=== PATIENT | female | born 1965 | race Caucasian/White ===

== ENCOUNTER 2023-08-17 14:03 | Emergency (ER) | payer SELFPAY ==
[2023-08-17 14:06] VITALS: BP 163/111; PULSE 77; RESP 16; TEMP 36.8; O2SAT 99; BMI 44.3
--- NOTE | 2023-08-17 14:18 | ED.GENADUL1 ---
HPI - General Adult General Chief complaint: Allergic Reaction Stated complaint: BEE STING ALLERGIC REACTION Time Seen by Provider: 08/17/23 14:10 Source: patient Mode of arrival: walk-in Limitations: no limitations History of Present Illness HPI narrative: patient is a 58-year-old female who presents to the emergency department for redness and swelling to the left medial arm after a bee sting approximately eight hours ago. She states she has a history of ALLERGIC reaction, but admits that she has never had any diffuse urticaria, lip swelling or tongue swelling and has never required an epi injection. She states typically the area where she is stung in the past has been red and swollen and she was told that she had an ALLERGIC reaction. She states she was always told she needed a steroid shot for her symptoms. She has no other focal medical complaints at this time. No medications taken prior to arrival. Related Data Previous Rx's Medication Instructions Recorded famotidine 20 mg tablet (Pepcid) 20 mg PO BID #10 tabs 08/17/23 hydroxyzine HCl 25 mg tablet 25 mg PO Q6H PRN itching #20 tabs 08/17/23 methylprednisolone 4 mg tablets in See Rx Instructions .Route 08/17/23 a dose pack (Medrol (Richard)) .COMPLEX #21 ea Allergies Allergy/AdvReac Type Severity Reaction Status Date / Time No Known Drug Allergies Allergy Verified 08/17/23 14:09 Review of Systems ROS Constitutional Denies: fever or chills Ears, nose, mouth, and throat Denies: throat pain, throat swelling or swelling of lips/tongue Cardiovascular Denies: chest pain Respiratory Denies: shortness of breath or cough Gastrointestinal Denies: nausea or vomiting Integumentary/Breast Reports: rash, itching, redness and skin swelling Endocrine Denies: excessive urination Allergic/Immunologic Denies: hives PFSH PFSH Social History Smoking status: Never smoker Exam Narrative Exam Narrative: Gen.: Awake, alert, in no distress Head: Normocephalic, atraumatic ENT: Moist mucous membranes,, no swelling of the lips or tongue, clear speech, no stridor Respiratory: No respiratory distress, lungs clear bilaterally Cardio: Regular rate and rhythm Extremities: Moves extremities equally Psych: Normal mood and affect Neuro: No focal neuro deficit Skin: Warm, dry, intact; erythema and swelling noted to the left medial arm, no visible or palpated stinger left in the skin. No diffuse urticaria noted. No red streaking or circumferential erythema of the left arm Constitutional Vital Signs, click to edit/add: Last Vital Signs Temp 98.3 F 08/17/23 14:06 Pulse 77 08/17/23 14:06 Resp 16 08/17/23 14:06 BP 163/111 H 08/17/23 14:06 Pulse Ox 99 08/17/23 14:06 O2 Del Method Room Air 08/17/23 14:06 Course Vital Signs Vital signs: Vital Signs Temperature 98.3 F 08/17/23 14:06 Pulse Rate 77 08/17/23 14:06 Respiratory Rate 16 08/17/23 14:06 Blood Pressure 163/111 H 08/17/23 14:06 Pulse Oximetry 99 08/17/23 14:06 Oxygen Delivery Method Room Air 08/17/23 14:06 Temperature 98.3 F 08/17/23 14:06 Pulse Rate 77 08/17/23 14:06 Respiratory Rate 16 08/17/23 14:06 Blood Pressure 163/111 H 08/17/23 14:06 Pulse Oximetry 99 08/17/23 14:06 Oxygen Delivery Method Room Air 08/17/23 14:06 Medical Decision Making MDM Narrative Medical decision making narrative: exam is consistent with a localized reaction to an insect sting, patient treated with steroids, antihistamines and Pepcid. Ice applied to the area. Follow-up with PCP and return to the Emergency Room if symptoms change or worsen. No evidence of diffuse ALLERGIC reaction or anaphylaxis at this time. Blood pressure rechecked prior to discharge. Medical Records Medical records reviewed: Yes I reviewed the patient's medical records Discharge Plan Discharge Chief Complaint: Allergic Reaction Clinical Impression: Bee sting Patient Disposition: Home, Self-Care Time of Disposition Decision: 14:16 Condition: Good Prescriptions / Home Meds: New famotidine [Pepcid] 20 mg tablet 20 mg PO BID Qty: 10 0RF hydroxyzine HCl 25 mg tablet 25 mg PO Q6H PRN (Reason: itching) Qty: 20 0RF methylprednisolone [Medrol (Richard)] 4 mg tablets,dose pack See Rx Instructions .ROUTE .COMPLEX Qty: 21 0RF Rx Instructions: Taper as directed Instructions: Insect Bite or Sting (ED) Stand Alone Forms: Portal Instructions
[2023-08-17] MEDS: PREDNISONE 20 MG TABLET 60 MG PO (14:22)
[2023-08-17] MEDS: FAMOTIDINE 20 MG TABLET 40 MG PO (14:22)
[2023-08-17] MEDS: HYDROXYZINE HCL 25 MG TABLET PO (14:22)
== END 2023-08-17 14:31 | disposition home or self-care (01) ==
LOC: ER 14:29
PROVIDERS: Emergency Provider Emergency Medicine; Family Provider Internal Medicine; PCP Internal Medicine
DX: T63.441A Toxic effect of venom of bees, accidental (unintentional), initial encounter (principal)
CPT/HCPCS: 99284